=== PATIENT | male | born 1965 | race Caucasian/White ===

== ENCOUNTER 2017-12-16 21:36 | Emergency (ER) | payer OTHER ==
[~2017-12-16] VITALS: Ht 160 cm; Wt 70.3 kg
[2017-12-16 22:21] LABS: URINE BILIRUBIN NEGATIVE (Negative); URINE BLOOD 2+ (Negative); URINE CLARITY CLEAR; URINE COLOR YELLOW; URINE GLUCOSE-RANDOM* NEGATIVE (Negative); URINE KETONES NEGATIVE (Negative); URINE LEUKOCYTES-REFLEX NEGATIVE (Negative); URINE NITRITE-REFLEX NEGATIVE (Negative); URINE PROTEIN (DIPSTICK) TRACE (Negative); URINE SPECIFIC GRAVITY 1.025 (1.005-1.035); URINE UROBILINOGEN 0.2 E.U./dl (0.2-1.0)
[2017-12-16 22:27] LABS: CASTS None Seen /LPF (None Seen); MUCUS 0-3 Light strn/LPF (None Seen); SQUAMOUS 0-3 Few /LPF (0-3)
[2017-12-16 22:28] LABS: BACTERIA-REFLEX 1-9 Few /HPF (None Seen); CRYSTALS None Seen /LPF (None Seen); URINE WBC-REFLEX 0-5 Rare /HPF (0-5)
[2017-12-16 22:57] LABS: ABSOLUTE NEUTROPHILS 8.6 thou/uL (1.4-8.2); EOSINOPHILS 0.9 % (0.0-3.0); HEMOGLOBIN 15.7 gm/dL (14.0-18.0); MCV 82.8 fL (80.0-100.0); MONOCYTES 5.2 % (1.0-8.0); PLATELET COUNT 237 thou/uL (150-400); POLYS 80.9 % (36.0-66.0); RBC 5.43 mil/uL (4.50-6.00); RDW 13.1 % (10.5-14.5); WBC 10.7 thou/uL (4.0-11.0)
[2017-12-16] MEDS ORDERED: HYDROCODONE-AP1 EAC6 PO (22:59)
[2017-12-16] MEDS ORDERED: FLOMAX0.4 MG PO (22:59)
[2017-12-16 23:03] LABS: CALCIUM 8.9 mg/dL (8.5-10.1); CREATININE 1.3 mg/dL (0.7-1.3); POTASSIUM 3.7 mmol/L (3.5-5.1)
[2017-12-16 23:09] LABS: ALBUMIN 3.9 g/dL (3.4-5.0); TOTAL BILIRUBIN 0.8 mg/dL (<0.1-1.0); TOTAL PROTEIN 8.1 g/dL (6.4-8.2)
[2017-12-16] MEDS ORDERED: TORADOL 10 MG T10 MG PO (23:28)
[2017-12-16] MEDS ORDERED: PHENERGAN 25 MG25 M1 PO (23:28)
[2017-12-16 23:36] VITALS: BP 147/88
== END 2017-12-16 23:36 | disposition home or self-care (01) ==
LOC: ER 21:36
PROVIDERS: Emergency Medicine; Physician Assistant
DX: N20.0 Calculus of kidney (principal)